=== PATIENT | female | born 1945 | race Caucasian/White ===

== ENCOUNTER → 2024-02-05 09:45 | Outpatient (REF) | payer MEDICARE, OTHER, SELFPAY ==
[2024-02-05 11:27] LABS: ALT (SGPT) 23 U/L (0-35); AST (SGOT) 40 U/L (14-36); Albumin 4.3 g/dl (3.5-5.0); Alkaline Phosphatase 84 U/L (38-126); Blood Urea Nitrogen 19 mg/dl (7-17); Calcium 10.6 mg/dl (8.4-10.2); Carbon Dioxide 29 mmol/L (22-30); Chloride 102 mmol/L (98-107); Glucose 91 mg/dl (70-99); HDL Cholesterol 106 mg/dl; LDL Cholesterol, Calculated 111 mg/dl; Potassium 4.5 mmol/L (3.5-5.1); Sodium 137 mmol/L (135-145); Total Bilirubin 0.7 mg/dl (0.2-1.3); Total Cholesterol 232 mg/dl (50-199); Triglyceride 76 mg/dl (10-149); Very Low Density Lipoprotein 15 mg/dl (0-30); eGFR > 60.00
== END ==
LOC: REG 09:45
PROVIDERS: ATTENDING PHYSICIAN Family Medicine; REFERRING PHYSICIAN Internal Medicine Cardiovascular Disease
DX: I10 Essential (primary) hypertension (principal); E78.00 Pure hypercholesterolemia, unspecified
CPT/HCPCS: 36415; 80053; 80061

== ENCOUNTER 2024-09-23 20:51 | Emergency (ER) | payer MEDICARE, OTHER, SELFPAY ==
[2024-09-23 20:57] VITALS: BMI 15.5
[2024-09-23 20:58] VITALS: BP 113/64
[2024-09-23 21:00] VITALS: BP 106/59
[2024-09-23 21:08] LABS: % Basophils 0.3 % (0-2); % Eosinophils 1.3 % (0-6); % Immature Granulocytes 0.2 % (0-0.5); % Lymphocytes 2.9 % (20.5-51.1); % Monocytes 8.2 % (1.7-9.3); % Neutrophils 87.1 % (42.2-75.2); Absolute Eosinophils 0.1 10^3/uL (0-0.7); Absolute Lymphocytes 0.3 10^3/uL (1.2-3.4); Absolute Monocytes 0.7 10^3/uL (0.1-0.6); Absolute Neutrophils 7.8 10^3/uL (1.4-6.5); Hematocrit 42.5 % (37.0-47.0); Mean Corp Hgb Conc. 32.9 g/dL (33.0-37.0); Mean Corpuscular Hgb 31.3 pg (27.0-31.0); Mean Corpuscular Volume 95.1 fL (81.0-99.0); Nucleated Red Blood Cells % 0 %; Platelet Count 336 10^3/uL (130-400); Red Blood Cell Count 4.47 10^6/uL (4.20-5.40); Red Cell Dist. Width 12.5 % (11.5-14.5); White Blood Cell Count 8.9 10^3/uL (4.8-10.8)
[2024-09-23] MEDS: NSS 500 IV ×2 (21:08→22:56)
[2024-09-23 21:24] LABS: ALT (SGPT) 24 U/L (0-35); AST (SGOT) 39 U/L (14-36); Albumin 4.3 g/dl (3.5-5.0); Alkaline Phosphatase 74 U/L (38-126); Blood Urea Nitrogen 29 mg/dl (7-17); Calcium 9.2 mg/dl (8.4-10.2); Carbon Dioxide 25 mmol/L (22-30); Chloride 99 mmol/L (98-107); Estimated Creatinine Clearance 28 ml/min; Glucose 151 mg/dl (70-99); Sodium 138 mmol/L (135-145); Total Bilirubin 0.5 mg/dl (0.2-1.3); eGFR 51.43
[2024-09-23 22:00] VITALS: BP 94/51
[2024-09-23 22:58] VITALS: BP 115/59
[2024-09-23 23:00] VITALS: BP 118/72
--- NOTE | 2024-09-23 23:35 | ED.GENMED ---
History of Present Illness
General
Chief Complaint: Abdominal Symptoms
Source: patient and spouse
Exam Limitations: dementia
Time Seen by Provider: 09/23/24 20:52
History of Present Illness
History of Present Illness:
This is 79-year-old female with a history of dementia who presents with persistent nausea, vomiting and diarrhea. states started last night and is just persistent she was unable to eat or drink much at all. He was concerned about her being
dehydrated. The patient initially arrived prior to family. She reported no complaints except for dry mouth. She specifically denied abdominal pain or persistent nausea. She also denied fevers. It is noted that she does have dementia. Patient's
son states that he was worried because she seems dehydrated. The patient's spouse states that there is norovirus going around the facility.
Past History
Past History
ED Past Medical History: HTN, Hypercholesterolemia, Psychiatric (anxiety. Multiple similar episodes of syncope, first time was 12/12, second time was 01/04, both with nausea preceding, did not have medical evaluation for these 2. Had a third episode on
02/11 and was evaluated here. 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
Social History
Personal:
Living: with family
Employment: Retired
Phy Exam
Physical Exam
Physical Exam:
CONSTITUTIONAL Patient alert and oriented to person. Dry mucous membranes. Vital signs reviewed.
HEAD atraumatic, normocephalic.
EYES eyelids normal to inspection, Extraocular muscles intact, Conjunctiva normal, Sclera normal.
NECK normal range of motion, Trachea midline, no jugular venous distention.
RESPIRATORY CHEST No respiratory distress noted, Chest expansion equal
ABDOMEN abdomen nontender, Bowel sounds normal. No distention.
BACK normal inspection, no obvious deformities
UPPER EXTREMITY range of motion normal, Motor strength normal, no cyanosis, no edema.
LOWER EXTREMITY range of motion normal, Motor strength normal, no cyanosis, no edema.
NEURO Speech normal, No focal motor deficits,Cranial Nerves intact to screening exam.
SKIN skin warm, dry, and normal in color.
Course
Orders/Labs/Results
Orders:
Orders
09/23/24 21:00
Complete Blood Count/With Diff Urgent
Comprehensive Metabolic Panel Urgent
09/23/24 21:03
0.9% Sodium Chloride 500 ml [Nss] 500 ml IV BOLUS
09/23/24 22:31
0.9% Sodium Chloride 500 ml [Nss] 500 ml IV BOLUS
Abnormal Lab Results
09/23/24
21:00
MCH 31.3 H pg
(27.0-31.0)
MCHC 32.9 L g/dL
(33.0-37.0)
Absolute Neuts (auto) 7.8 H 10^3/uL
(1.4-6.5)
Absolute Lymphs (auto) 0.3 L 10^3/uL
(1.2-3.4)
Absolute Monos (auto) 0.7 H 10^3/uL
(0.1-0.6)
Neutrophils % 87.1 H %
(42.2-75.2)
Lymphocytes % 2.9 L %
(20.5-51.1)
BUN 29 H mg/dl
(7-17)
Creatinine 1.1 H mg/dL
(0.6-1.0)
Glucose 151 H mg/dl
(70-99)
AST 39 H U/L
(14-36)
09/23/24 21:00
09/23/24 21:00
Vital Signs
Initial and Last Documented VS:
Initial Vital Signs
Temp
98.8 F
09/23/24 20:54
Last Documented Vital Signs
Temp Pulse Resp BP Pulse Ox
98.8 F 100 27 118/72 97
09/23/24 20:54 09/23/24 23:00 09/23/24 23:00 09/23/24 23:00 09/23/24 23:00
MDM/Problems Addressed
Differential Diagnosis Includes:
Electrolyte imbalance, gastroenteritis, norovirus
MDM/Problems Addressed:
Dehydration, vomiting, diarrhea, gastroenteritis
*Pulse Oximetry
Patient hypoxic: no
*Critical Care Note
Total Time (30-74mins, 75-104mins- exclusive of procedures): Not Applicable
Data Reviewed
Review of Other/Old Records Reveals: Labs (Prior labs from February 2024 reviewed showing creatinine 0.9)
Source: patient and family
Further Testing Considered But Not Given:
Consider CT of the abdomen but patient offers no complaints of pain in her abdomen soft nontender.
Patient Management
Escalation/DeEscalation of care consider admission/obs:
Considered admission. However, patient has had no further vomiting. She was given 1 L of IV fluids and is now tolerating ice chips. She is happy and smiling. Case discussed with family and shared decision making concluded that she was stable to
go home for outpatient management. Counseled on reasons for return and spouse and family agree
ED Attending Note
-
Portions of this chart may have been created with voice recognition software.� Occasional wrong word or��sound alike� substitutions may have occurred due to the inherent limitations of voice recognition software.
Discharge Plan
Departure
Patient Disposition: Home (Routine Discharge)
Date of Disposition: 09/23/24
Time of Disposition: 23:35
Patient with high blood pressure during this ER visit?: No
Discharge Problem:
Vomiting, Acute diarrhea
Instructions: Clear Liquid Diet, Dehydration, Adult (DC), Nausea and Vomiting, Adult (DC)
Prescriptions:
New
ondansetron 4 mg tablet,disintegrating
4 mg PO Q6H PRN (Reason: nausea and vomiting) Qty: 20 0RF
No Action
polyethylene glycol 3350 17 GRAMS powder in packet
17 grams PO BID
atorvastatin 10 MG tablet
10 mg PO DAILY
lisinopril 5 MG tablet
5 mg PO DAILY
metoprolol succinate 25 MG tablet extended release 24 hr
25 mg PO DAILY
Escitalopram Oxalate
10 mg PO DAILY
Referrals:
UNKNOWN - PT NOT,INTERVIEWE [Family Provider] -
Activity Restrictions/Additional Instructions:
Continue to ensure proper hydration and advance diet slowly as discussed. Trial clear liquids tomorrow if she feels well enough. If she tolerates clear liquids for 2 meals you may progress to a more bland diet such as bananas, toast or rice.
Please see your doctor in follow-up in the next 48 hours. Return today for intractable vomiting, abdominal pain, changes in mental status or any other concerns
Interventions
Interventions:
*Risk Screen - Suicide Last Done: 09/23/24 20:54
*General Assessment Last Done: 09/23/24 20:54
*Neglect/Abuse Screening Last Done: 09/23/24 20:54
*ED COVID-19 Vaccine History Last Done: 09/23/24 20:54
*Nursing Disposition Last Done: 09/24/24 00:03
UL-Ehcdyd-Bczmqkvcea Assessment Last Done: 09/23/24 20:54
Discharge Date and Time
Discharge Date/Time: 09/24/24 00:04
Print Language: BAHAMIAN
== END 2024-09-24 00:04 | disposition home or self-care (01) ==
LOC: EMR 20:51
PROVIDERS: EMERGENCY PHYSICIAN Emergency Medicine
DX: E86.0 Dehydration (principal); R11.2 Nausea with vomiting, unspecified; R19.7 Diarrhea, unspecified; I10 Essential (primary) hypertension; E78.00 Pure hypercholesterolemia, unspecified; F03.90 Unspecified dementia, unspecified severity, without behavioral disturbance, psychotic disturbance, mood disturbance, and anxiety
CPT/HCPCS: 96360; 99284; 80053; 85025

== ENCOUNTER 2025-07-05 07:31 | Inpatient (IN) | payer MEDICARE, OTHER, SELFPAY ==
[2025-07-03 12:05] VITALS: BP 124/83
--- NOTE | 2025-07-03 12:24 | ED.GENMED ---
History of Present Illness
<Stacy Melchor PA-C - Last Filed: 07/03/25 18:49>
General
Chief Complaint: Skin Problem
Source: family and ambulance crew
Exam Limitations: dementia
Time Seen by Provider: 07/03/25 12:10
History of Present Illness
History of Present Illness:
80yoF with a history of dementia, hypertension, hyperlipidemia presenting via EMS for evaluation of left ankle and foot redness. Patient is a resident at [facility]. Patient is unable to provide any history due to underlying
dementia. EMS was called today for left foot redness and swelling. There was no reported trauma. Son states that patient was unable to ambulate today due to the pain which is unusual for her. Mental status is at baseline.
Past History
<Stacy Melchor PA-C - Last Filed: 07/03/25 18:49>
Past History
ED Past Medical History: HTN, Hypercholesterolemia, Psychiatric (anxiety. Multiple similar episodes of syncope, first time was 12/12, second time was 01/04, both with nausea preceding, did not have medical evaluation for these 2. Had a third episode on
02/11 and was evaluated here. 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
Social History
Personal:
Living: with family
Employment: Retired
Phy Exam
<Stacy Melchor PA-C - Last Filed: 07/03/25 18:49>
General Physical Exam
General Presentation: well appearing and no apparent distress
General Skin: warm and dry
General Habitus: normal and elderly
General Mental: alert
ENT Exam
ENT Exam: normocephalic
Cardiovascular Exam
Cardiovascular Exam: normal peripheral pulses (2+ DP and PT pulses bilaterally)
Pulmonary Exam
Pulmonary Exam: no respiratory distress
Neurological Exam
Neurological Exam: alert
Chris Coma Scale
Eye Opening: Spontaneous
Verbal Response: Oriented
Motor Response: Obeys Commands
GCS Total Score: 15
Musculoskeletal Exam
Musculoskeletal Exam: other (Diffuse edema noted to L ankle and foot region with associated erythema and warmth. No visualized wounds.)
Skin Exam
Skin Exam: warm/dry
Psychiatric Exam
Psychiatric Exam: normal mood/affect
Course
<Stacy Melchor PA-C - Last Filed: 07/03/25 18:49>
Orders/Labs/Results
Orders:
Orders
07/03/25 Breakfast
Cholesterol Lowering
At Your Request: Limited Participation
Cholesterol Lowering: Sodium, 2 Gram
07/03/25 12:22
CR Ankle - Left Min 3 Views Urgent
Comment:
Reason For Exam: pain, swelling
CR Foot - Left Min 3 Views Urgent
Comment:
Reason For Exam: pain, swelling
Venous Doppler Lwr Ext Left [US Periph Venous LOWER Ext LT] Urgent
Comment:
Reason For Exam: L lower leg swelling
07/03/25 12:31
Complete Blood Count/With Diff Urgent
Comprehensive Metabolic Panel Urgent
07/03/25 15:55
CeFAZolin 2 GRAM [Ancef] 2 grams in 10 ml IV NOW
07/03/25 16:00
Acetaminophen [Tylenol] 1,000 mg PO NOW STA
07/03/25 16:36
Pelvis, 1 or 2 Views CR [CR Pelvis - 1 Or 2 Views ] Urgent
Comment:
Reason For Exam: pain
07/03/25 17:02
Admit/Transfer Patient As Directed
Co-Sign Provider:
Level of Care: Observation services
Assign to:: Medical/Surgical
Physician / Group: [email or web address]
Diagnosis: Cellulitis LLEx
07/03/25 17:05
Code Status As Directed
Resuscitation Status: Full Code
07/03/25 18:16
Acetaminophen [Tylenol] 650 mg PO Q4HPRN PRN
Bisacodyl [Dulcolax] 10 mg RECTAL [id number] PRN
CeFAZolin 1 GRAM [Ancef] 1 gram in 5 ml IV Q8H
Docusate W/Senna [Senokot-S] 1 tablet PO BIDPRN PRN
Enoxaparin Sodium [Lovenox] 40 mg SC QPM
Polyethylene Glycol Powder [Miralax] 17 grams PO DAILYPRN PRN
07/03/25 18:16
Activity As Directed
Activity Level: With Assistance
Vital Signs As Directed
Frequency: Per unit guidelines
DX Deep Vein Thrombosis Video Routine
07/03/25 20:00
Polyethylene Glycol Powder [Miralax] 17 grams PO BID
07/04/25 06:00
Complete Blood Count/No Diff IN AM
07/04/25 08:00
Atorvastatin [Lipitor] 10 mg PO DAILY
Escitalopram Oxalate 10 mg PO DAILY
Lisinopril [Zestril] 5 mg PO DAILY
Metoprolol Xl [Toprol Xl] 25 mg PO DAILY
Abnormal Lab Results
07/03/25
12:31
WBC 15.2 H 10^3/uL
(4.8-10.8)
RBC 3.98 L 10^6/uL
(4.20-5.40)
Hgb 11.9 L g/dL
(12.0-16.0)
Hct 36.3 L %
(37.0-47.0)
MCHC 32.8 L g/dL
(33.0-37.0)
Abs Immat Gran (auto) 0.1 H 10^3/uL
(0-0.05)
Absolute Neuts (auto) 12.6 H 10^3/uL
(1.4-6.5)
Absolute Lymphs (auto) 1.0 L 10^3/uL
(1.2-3.4)
Absolute Monos (auto) 1.5 H 10^3/uL
(0.1-0.6)
Immature Gran % 0.6 H %
(0-0.5)
Neutrophils % 82.4 H %
(42.2-75.2)
Lymphocytes % 6.7 L %
(20.5-51.1)
Monocytes % 10.0 H %
(1.7-9.3)
AST 37 H U/L
(14-36)
07/03/25 12:31
07/03/25 12:31
Vital Signs
Initial and Last Documented VS:
Initial Vital Signs
Temp Pulse Resp BP Pulse Ox
98.6 F 75 17 124/83 97
07/03/25 12:05 07/03/25 12:05 07/03/25 12:05 07/03/25 12:05 07/03/25 12:05
Last Documented Vital Signs
Temp Pulse Resp BP Pulse Ox
98.4 F 65 18 117/60 93
07/03/25 18:20 07/03/25 18:20 07/03/25 18:20 07/03/25 18:20 07/03/25 18:20
Svetlanalt;Ye Alicea, - Last Filed: 07/03/25 16:53>
Orders/Labs/Results
Orders:
Orders
07/03/25 Breakfast
Cholesterol Lowering
At Your Request: Limited Participation
Cholesterol Lowering: Sodium, 2 Gram
07/03/25 12:22
CR Ankle - Left Min 3 Views Urgent
Comment:
Reason For Exam: pain, swelling
CR Foot - Left Min 3 Views Urgent
Comment:
Reason For Exam: pain, swelling
Venous Doppler Lwr Ext Left [US Periph Venous LOWER Ext LT] Urgent
Comment:
Reason For Exam: L lower leg swelling
07/03/25 12:31
Complete Blood Count/With Diff Urgent
Comprehensive Metabolic Panel Urgent
07/03/25 15:55
CeFAZolin 2 GRAM [Ancef] 2 grams in 10 ml IV NOW
07/03/25 16:00
Acetaminophen [Tylenol] 1,000 mg PO NOW STA
07/03/25 16:36
Pelvis, 1 or 2 Views CR [CR Pelvis - 1 Or 2 Views ] Urgent
Comment:
Reason For Exam: pain
07/03/25 17:02
Admit/Transfer Patient As Directed
Co-Sign Provider:
Level of Care: Observation services
Assign to:: Medical/Surgical
Physician / Group: [email or web address]
Diagnosis: Cellulitis LLEx
07/03/25 17:05
Code Status As Directed
Resuscitation Status: Full Code
07/03/25 18:16
Acetaminophen [Tylenol] 650 mg PO Q4HPRN PRN
Bisacodyl [Dulcolax] 10 mg RECTAL Q16WFRH PRN
CeFAZolin 1 GRAM [Ancef] 1 gram in 5 ml IV Q8H
Docusate W/Senna [Senokot-S] 1 tablet PO BIDPRN PRN
Enoxaparin Sodium [Lovenox] 40 mg SC QPM
Polyethylene Glycol Powder [Miralax] 17 grams PO DAILYPRN PRN
07/03/25 18:16
Activity As Directed
Activity Level: With Assistance
Vital Signs As Directed
Frequency: Per unit guidelines
DX Deep Vein Thrombosis Video Routine
07/03/25 20:00
Polyethylene Glycol Powder [Miralax] 17 grams PO BID
07/04/25 06:00
Complete Blood Count/No Diff IN AM
07/04/25 08:00
Atorvastatin [Lipitor] 10 mg PO DAILY
Escitalopram Oxalate 10 mg PO DAILY
Lisinopril [Zestril] 5 mg PO DAILY
Metoprolol Xl [Toprol Xl] 25 mg PO DAILY
Abnormal Lab Results
07/03/25
12:31
WBC 15.2 H 10^3/uL
(4.8-10.8)
RBC 3.98 L 10^6/uL
(4.20-5.40)
Hgb 11.9 L g/dL
(12.0-16.0)
Hct 36.3 L %
(37.0-47.0)
MCHC 32.8 L g/dL
(33.0-37.0)
Abs Immat Gran (auto) 0.1 H 10^3/uL
(0-0.05)
Absolute Neuts (auto) 12.6 H 10^3/uL
(1.4-6.5)
Absolute Lymphs (auto) 1.0 L 10^3/uL
(1.2-3.4)
Absolute Monos (auto) 1.5 H 10^3/uL
(0.1-0.6)
Immature Gran % 0.6 H %
(0-0.5)
Neutrophils % 82.4 H %
(42.2-75.2)
Lymphocytes % 6.7 L %
(20.5-51.1)
Monocytes % 10.0 H %
(1.7-9.3)
AST 37 H U/L
(14-36)
07/03/25 12:31
07/03/25 12:31
Vital Signs
Initial and Last Documented VS:
Initial Vital Signs
Temp Pulse Resp BP Pulse Ox
98.6 F 75 17 124/83 97
07/03/25 12:05 07/03/25 12:05 07/03/25 12:05 07/03/25 12:05 07/03/25 12:05
Last Documented Vital Signs
Temp Pulse Resp BP Pulse Ox
98.4 F 65 18 117/60 93
07/03/25 18:20 07/03/25 18:20 07/03/25 18:20 07/03/25 18:20 07/03/25 18:20
<Stacy Melchor PA-C - Last Filed: 07/03/25 18:49>
MDM/Problems Addressed
Differential Diagnosis Includes:
80yoF here with atraumatic L foot/ankle redness and swelling. Hx of dementia and further history is limited. VSS. She is well appearing in no distress. Erythema and warmth noted on exam. LLE is neurovascularly intact. Differential diagnosis includes
but is not limited to: DVT, cellulitis, venous stasis, fracture, gout
Initial ED plan: Check CBC, CMP, venous duplex, and L foot/ankle x-rays.
<Stacy Melchor PA-C - Last Filed: 07/03/25 18:49>
*Pulse Oximetry
SaO2: 97
Oxygen Mode of Delivery: Room air
Patient hypoxic: no
*Critical Care Note
Total Time (30-74mins, 75-104mins- exclusive of procedures): Not Applicable
<Stacy Melchor PA-C - Last Filed: 07/03/25 18:49>
Update Note
Update Note:
Venous duplex is negative for DVT. X-rays do not show any fractures. Labs reveal a leukocytosis with a WBC of 15. Suspect cellulitis. After discussion with son, initially attempted to discharge patient to trial course of PO antibiotics. Patient was
unable to ambulate and required an assist of 2 to get off the stretcher. Patient reporting R thigh pain on reassessment and pelvic x-rays ordered. At this point, will admit given inability to ambulate. IV Ancef given.
ED Attending Note
<Stacy Melchor PA-C - Last Filed: 07/03/25 18:49>
-
Portions of this chart may have been created with voice recognition software.� Occasional wrong word or��sound alike� substitutions may have occurred due to the inherent limitations of voice recognition software.
<Ye Alicea DO - Last Filed: 07/03/25 16:53>
ED Attending Note
Patient seen and examined by attending physician: Yes
I performed the substantive portion of visit, reviewed & personally made and approve the management plan that is documented in note by myself or ТАТЬЯНА.: Yes
ED Attending Note:
I have reviewed Danielle's note
Patient presents from the [facility] for evaluation of left foot redness and swelling. No known fever. Patient has otherwise been at her baseline. She has been unable to weight-bear. When attempting to weight-bear here with her son the
patient had pain in the right groin.
General: Sleeping but readily arousable, confused but at her baseline per son
Vitals: unremarkable
Head: Atraumatic
Eyes: Pupils equal, EOMI
Neck: Trachea midline
Lungs: Clear and equal b/l
Heart: Regular rate, no murmurs
Abd: Soft, Nontender, No pulsatile mass
Neuro: No focal weakness
Back: Tenderness to palpation and ecchymosis noted right buttock over the ischial tuberosity and ilium
Skin: Warm, dry, no rash mild to moderate erythema left lower leg and foot. No significant discomfort with range of motion of the ankle bilaterally, knee bilaterally or hip bilaterally. No edema
Antibiotics for possible cellulitis. Will obtain further imaging of the pelvis. Patient unable to weight-bear she will be suitable for discharge.
Discharge Plan
Departure
Patient Disposition: Admit
Date of Disposition: 07/03/25
Time of Disposition: 16:40
Presentation/result/management discussed w/ accepting MD/DO: Hospitalist
Discharge Problem:
Cellulitis of left lower extremity
Interventions
Interventions:
*Risk Screen - Suicide Last Done: 07/03/25 12:06
*General Assessment Last Done: 07/03/25 12:06
*Neglect/Abuse Screening Last Done: 07/03/25 12:06
*ED- Fall Risk Assessment Last Done: 07/03/25 12:24
*ED COVID-19 Vaccine History Last Done: 07/03/25 12:06
*Nursing Disposition Last Done: 07/03/25 18:28
ED-Skin Assessment Last Done: 07/03/25 12:33
Discharge Date and Time
Discharge Date/Time: 07/03/25 18:28
[2025-07-03 12:38] LABS: Hematocrit 36.3 % (37.0-47.0); Hemoglobin 11.9 g/dL (12.0-16.0); Mean Corp Hgb Conc. 32.8 g/dL (33.0-37.0); Mean Corpuscular Volume 91.2 fL (81.0-99.0); Nucleated Red Blood Cells % 0 %; Platelet Count 256 10^3/uL (130-400); Red Cell Dist. Width 13.2 % (11.5-14.5)
[2025-07-03 12:58] LABS: ALT (SGPT) 22 U/L (0-35); AST (SGOT) 37 U/L (14-36); Albumin 3.8 g/dl (3.5-5.0); Alkaline Phosphatase 103 U/L (38-126); Blood Urea Nitrogen 16 mg/dl (7-17); Calcium 8.9 mg/dl (8.4-10.2); Carbon Dioxide 30 mmol/L (22-30); Chloride 103 mmol/L (98-107); Glucose 96 mg/dl (70-99); Potassium 4.0 mmol/L (3.5-5.1); Sodium 137 mmol/L (135-145); Total Protein 6.8 g/dl (6.3-8.2); eGFR > 60.00
[2025-07-03 13:00] VITALS: BP 146/75
[2025-07-03 14:00] VITALS: BP 126/65
[2025-07-03 15:29] VITALS: BP 133/72
[2025-07-03] MEDS: ANCEF 10 IV (16:00)
[2025-07-03] MEDS: TYLENOL 1000 MG PO (16:09)
--- NOTE | 2025-07-03 16:53 | HPS.HSE ---
Family Physician
-
Family Physician: Clayton Paulino
Chief Complaint
-
L ankle redness and swelling
History of Present Illness
HPI
80F with dementia NH Res HX, HTN, HLD seen at ER:
- pw atraumatic L ankle redness and swelling.
- afebrile and VSS normal
- WCC 15.
- Unreamrkable XR
- Unremarkable US for DVT
- she is unable to ambulate or bear any weight and son does not feel comfortable with her going home.
Medical History
Past Medical History
Past Medical History: Reports Dementia, HTN and Hypercholesterolemia
Past Surgical History: Reports Other
Social History
Unable to obtain full social history at this time due to: Dementia
Family History
Family History: Not pertinent
Allergies / Home Medications
Allergies reflects when Allergies were last updated in [facility].
Home Medications with original date entered in [facility]
Allergy/Medication List:
Allergies
Allergy/AdvReac Type Severity Reaction Status Date / Time
atenolol Allergy Unknown Verified 07/03/25 12:06
hydrochlorothiazide Allergy Unknown Verified 07/03/25 12:06
Home Medications
Escitalopram Oxalate 10 mg PO DAILY 07/07/19
atorvastatin 10 mg tablet 10 mg PO DAILY 07/07/19
lisinopril 5 mg tablet 5 mg PO DAILY 07/07/19
metoprolol succinate 25 mg tablet,extended release 24 hr 25 mg PO DAILY 07/07/19
polyethylene glycol 3350 17 gram oral powder packet 17 grams PO BID 07/07/19
ondansetron 4 mg disintegrating tablet 4 mg PO Q6H PRN nausea and vomiting #20 tabs 09/23/24
cephalexin 500 mg capsule 500 mg PO Q6H 7 days #28 caps 07/03/25
Review of Systems
-
Unable to obtain full review of systems at this time due to: Dementia
Physical Exam
Vital Signs
Vital Signs
Temp Pulse Resp BP Pulse Ox
98.6 F 78 12 133/72 95
07/03/25 12:05 07/03/25 15:30 07/03/25 15:30 07/03/25 15:29 07/03/25 15:30
Physical Exam
General: Well Developed, Well Nourished and No Apparent Distress
HEENT: NormoCephalic, Moist mucous membranes and Atraumatic
Respiratory: Clear
Cardiac: S1/S2 and Regular Rhythm; No Murmur or Rub
GI: Soft, Non Tender, Non Distended and Normal Bowel Sounds; No Organomegaly
Rectal: Deferred by Provider
Musculoskeletal: No Clubbing, No Cyanosis and No Edema
Skin: Rash ( L ankle redness and swelling.)
Neuro: Nonfocal/grossly intact
Laboratory Results
-
07/03/25 12:31
07/03/25 12:31
Laboratory Results
Total Bilirubin 1.1 mg/dl (0.2-1.3) 07/03/25 12:31
AST 37 U/L (14-36) H 07/03/25 12:31
ALT 22 U/L (0-35) 07/03/25 12:31
Alkaline Phosphatase 103 U/L (38-126) 07/03/25 12:31
Data Reviewed
-
Diagnostic Radiology: Report Reviewed by me
Lab Data: Labs Reviewed by me
Impression/Plan
-
Vital Signs
Temp Pulse Resp BP Pulse Ox
98.6 F 78 12 133/72 95
07/03/25 12:05 07/03/25 15:30 07/03/25 15:30 07/03/25 15:29 07/03/25 15:30
Laboratory Tests
06/13/16 07/03/25
07:17 12:31
WBC 15.2 H
Hgb 11.9 L
BUN 16
eGFR > 60.00
AST 37 H
Urine WBC 0-2
Ur Squamous Epith Cells >30
Urine Bacteria Many H
LLEX US
No sonographic evidence for left lower extremity deep venous thrombosis.
Lt Foot XR
- No acute fracture or dislocation.
- Minor joint space narrowing of the first metatarsophalangeal joint with tiny marginal osteophytes. The joint spaces are otherwise maintained.
- Soft tissue swelling about the foot and ankle, nonspecific.
ASSESSMENT & PLAN
Pending Rx reconciliation
Lt distal Laura cellulitis
Associated acute gait dysfunction
Leucocytosis
- Not septic
- NEG Sono for DVT. NEG XR Fx
- Failed OP Cephalexin
- Agree with IV Cefazolin
- Trend WCC
- PT/OT
Ecchymoses over Rt gluteal region
No tenderness on Pelvic compression
Non tender on rolling Laura
- Pending XR Pelvis
Pre existing condition
HX dementia- NH Resident
Essential HTN - stable on Lisinopril, Metoprolol succinate
HLD - control, on Atorvastatin
DVT Px: LMWH
DNR per son who is palliative PA at [facility]
Obs MS
[2025-07-03 18:20] VITALS: BP 117/60
[2025-07-03 18:25] VITALS: BMI 17.9
[2025-07-03] MEDS: MIRALAX 17 GRAMS PO (19:56)
[2025-07-03] MEDS: LOVENOX 40 MG SC (19:56)
[2025-07-03 23:00] VITALS: BP 115/52
[2025-07-03] MEDS: ANCEF 5 IV (23:57)
[2025-07-04 07:00] VITALS: BP 156/75
[2025-07-04 07:40] LABS: Hematocrit 36.6 % (37.0-47.0); Hemoglobin 12.2 g/dL (12.0-16.0); Mean Corp Hgb Conc. 33.3 g/dL (33.0-37.0); Mean Corpuscular Volume 92.0 fL (81.0-99.0); Platelet Count 247 10^3/uL (130-400); Red Cell Dist. Width 13.0 % (11.5-14.5)
[2025-07-04] MEDS: MIRALAX 17 GRAMS PO ×2 (07:43→19:54)
[2025-07-04] MEDS: TYLENOL 650 MG PO ×3 (07:44→19:53)
[2025-07-04] MEDS: TOPROL XL 25 MG PO (07:44)
[2025-07-04] MEDS: ANCEF 5 IV ×2 (07:44→15:29)
[2025-07-04] MEDS: ZESTRIL 5 MG PO (07:44)
[2025-07-04] MEDS: LIPITOR 10 MG PO (07:44)
[2025-07-04] MEDS: LEXAPRO 10 MG PO (07:44)
--- NOTE | 2025-07-04 08:31 | CON.ORTHO ---
Consultation
-
Date/Time Consultation Requested: Jun 30/0647
Date/Time Consultation Performed: Jun 30/0745
Requesting Provider: Gio
Performing Provider: Hugo for [facility]
Reason for Consultation: Right sided hemipelvis fractures
Consultation - Orthopedics
History
History of Present Illness:
80 y/o female with a PMH of dementia, hypertension, hyperlipidemia presenting via EMS for evaluation of left ankle and foot redness. Patient is a resident at [facility]. Patient is unable to provide any history due to underlying
dementia. EMS was called today for left foot redness and swelling. There was no reported trauma. Son states that patient was unable to ambulate today due to the pain which is unusual for her. Mental status is reported baseline. It appears as
though she was started on IV ABX for her left ankle pain and redness. Xrays negative and US LLE negative for DVT. However, although no reported trauma, x-rays of the pelvis were obtained which revealed acute appearing right sided hemipelvis
fractures, therefore we were requested in consultation by Dr. Powers.
Past Medical History:
Dementia
HTN
Hypercholesterolemia
Surgical History:
Non available
Social History:
Personal:
Living: with family ([facility])
Employment: Retired
Family History:
Noncontributory
ROS:
12 point negative except for those mentioned in the HPI
Allergies / Home Medications
Allergy/AdvReac Type Severity Reaction Status Date / Time
atenolol Allergy Unknown Verified 07/03/25 12:06
hydrochlorothiazide Allergy Unknown Verified 07/03/25 12:06
�Medication �Instructions �Recorded
Escitalopram Oxalate 10 mg PO DAILY Mental 07/07/19
Health/Anxiety
atorvastatin 10 mg tablet 10 mg PO DAILY High Cholesterol 07/07/19
lisinopril 5 mg tablet 5 mg PO DAILY Blood Pressure 07/07/19
metoprolol succinate 25 mg 25 mg PO DAILY Blood Pressure 07/07/19
tablet,extended release 24 hr
polyethylene glycol 3350 17 gram 17 grams PO BID Constipation 07/07/19
oral powder packet
ondansetron 4 mg disintegrating 4 mg PO Q6H PRN nausea and 09/23/24
tablet vomiting #20 tabs
cephalexin 500 mg capsule 500 mg PO Q6H 7 days #28 caps 07/03/25
Vital Signs / Lab Results
Temp Pulse Resp BP Pulse Ox
98.1 F 72 12 156/75 94
07/04/25 07:00 07/04/25 07:44 07/04/25 07:00 07/04/25 07:44 07/04/25 07:00
07/04/25 07:10
07/03/25 12:31
Assessment / Plan
PE: Currently at bedrest. Very poor historian given dementia. skin is intact about the pelvis. + Pelvic compression for right sided pain. - logrolls B/L LEs. Both knees are nontender. Calves are soft and nontender. Minimal erythema of the
anterior ankle, but absolutely no pain with passive ranging of the ankle and subtalar joints. DNVI B/L LEs
Xrays: RIGHT superior and inferior pubic rami fractures, with displacement. mild bilateral hip OA
Impression: JEANIE with left ankle pain/swelling
Plan: I did discuss with the patient, but I am not sure that it yielded much understanding. I spoke to Dr. Powers, who was going to place a call to her son and POA. Fortunately her pelvis fractures may be managed nonoperatively. She may be WBAT
B/L LEs on a walker, as pain permits. Recommend PT/OT during admission. Pain control. when medically optimized may be discharged back to her memory care unit with outpatient orthopedic follow-up in 4 weeks. At this time orthopedics will sign off,
however please reengage with any pertinent questions as necessary. Continue IV ABX and observation for her left ankle. if symptoms persist or regress podiatric consult could be considered.
This patient was seen in tandem with Dr. Don Martinez
[2025-07-04 09:45] VITALS: BMI 17.9
--- NOTE | 2025-07-04 09:54 | W.PN.HOSP.TC ---
Addendum entered and electronically signed by Megan Powers MD 07/04/25 10:41:
Addendum
Will also add CT head and cervical area due to suspected fall at shelter, no gross neurological deficits, no headache or neck pain, no history of loss of consciousness or vomiting but patient has dementia and unable to provide l history
End
Original Note:
Today's Communication/Plan
-
Blood culture
CT left Ankle
Consult ID & Ortho
Assessment / Plan
Assessment / Plan
Physical Exam
General: Well Developed, Well Nourished and No Apparent Distress
HEENT: Normocephalic, Moist mucous membranes and Atraumatic
Respiratory: Clear
Cardiac: S1/S2 and Regular Rhythm; No Murmur or Rub
GI: Soft, Non Tender, Non Distended and Normal Bowel Sounds
Rectal: Deferred by Provider
Musculoskeletal: No Clubbing, No Cyanosis and No Edema
Skin: Rash ( L ankle redness and swelling/ lump anteriorly.)
Neuro: awake, disoriented to self, forgetful, followed commands.
Psych: calm, apparent dementia.
A/P:
Lt ankle swelling
Admitted as distal Laura cellulitis
Positive Leucocytosis
- Not septic or toxic looking
- NEG Sono for DVT. NEG XR Fx
- Failed OP Cephalexin
-c/w IV Cefazolin
Order blood culture
Appreciate ortho & ID help
# Acute fractures of the right superior and inferior pubic rami with displacement POA causing change in gait with gait dysfunction
d/w ortho, will need WBAT with a walker
I updated her son Oliverio
Likely related to a fall, pt has memory impairment, unable to provide history
Pre existing condition
HX dementia- [place] Resident
Essential HTN - stable on Lisinopril, Metoprolol succinate
HLD - control, on Atorvastatin
Total time spent to see the patient, examine the patient, review data lab result, discuss treatment plan with patient, her family, nursing staff around 55 minutes
Anticipated Discharge: > 48 hours
Subjective/Interval History
-
Date of Service: July 04, 2025
No chest pain
No sob
No fevers
Objective Data
-
Labs:
Laboratory Results
07/04/25
07:10
WBC 11.8 H
Hgb 12.2
Hct 36.6 L
Plt Count 247
Vital Signs:
Vital Signs
Temp Pulse Resp BP Pulse Ox
98.1 F 72 12 156/75 94
07/04/25 07:00 07/04/25 07:44 07/04/25 07:00 07/04/25 07:44 07/04/25 07:00
I&O
07/03/25 07/04/25 07/05/25
06:59 06:59 06:59
Intake Total 765 / 765 480 / 480
Balance 765 / 765 480 / 480
--- NOTE | 2025-07-04 11:15 | W.PN.UPDATE ---
Update Note
Progress Note Update
CT of the left foot and ankle reviewed. Discussed with Dr. Powers. Findings on CT very likely related to some kind of trauma, likely the fall that resulted in her pelvis fractures. Unfortunately, due to her dementia, not a great historian. Findings
consist of generalized edema of the subcutaneous tissues. Achilles tendinosis. Chronic avulsion injury to the medial mall. Would recommend supportive measures with ice and elevation. A boot could help get some weight off the area, but may
potentially set her up for a fall, which we definitely want to avoid. Therefore, a boot may not be the best option. Some steroids might help reduce the level of inflammation and swelling. Her exam this morning was essentially benign, therefore I
would approach very supportively
[2025-07-04 14:05] VITALS: BP 138/65; BP 80/52; PULSE 70
[2025-07-04 14:11] VITALS: BP 138/65; BP 80/52; PULSE 70
[2025-07-04 15:00] VITALS: BP 125/72
[2025-07-04] MEDS: RISPERDAL 0.25 MG PO ×2 (15:17→22:58)
--- NOTE | 2025-07-04 15:38 | CM ---
Spoke with son Richard . Pt is confused and lives at [facility] in memory care. She is assisted in all ADLs.She uses no adaptive devices. [facility] letter explained to son. Son did not sign. Virgen copy left .Will need PT OT for discharge plan.
NO VN / SNF kx
Pharmacy [facility]
PCP Dr Paulino
PLAn Will Need PT OT evals for dc planning.
[2025-07-04] MEDS: LOVENOX 40 MG SC (17:47)
[2025-07-04] MEDS: DILAUDID IV (22:57)
[2025-07-04] MEDS: SENOKOT-S 1 TABLET PO (22:58)
[2025-07-04 23:47] VITALS: BP 124/61
[2025-07-04] MEDS: DILAUDID 0.25 MG IV (23:59)
[2025-07-05] MEDS: TYLENOL 650 MG PO (02:14)
[2025-07-05 07:00] VITALS: BP 107/54
--- NOTE | 2025-07-05 08:57 | W.PN.HOSP.TC ---
Today's Communication/Plan
-
likely dc Friday
Assessment / Plan
Assessment / Plan
Physical Exam
General: Well Developed, Well Nourished and No Apparent Distress
HEENT: Normocephalic, Moist mucous membranes and Atraumatic
Respiratory: Clear
Cardiac: S1/S2 and Regular Rhythm; No Murmur or Rub
GI: Soft, Non Tender, Non Distended and Normal Bowel Sounds
Rectal: Deferred by Provider
Musculoskeletal: No Clubbing, No Cyanosis and No Edema
Skin: Rash ( L ankle redness and swelling/ lump anteriorly.)
Neuro: awake, disoriented to self, forgetful, followed commands.
Psych: calm, apparent dementia.
A/P:
Lt ankle swelling
CT showed: Significant generalized edema of the subcutaneous tissues. Severe Achilles tendinosis, chronic avulsion injury to the medial malleolus.
d/w ortho, c/w supportive measures with ice and elevation/ walker. Per ortho: A boot could help get some weight off the area, but may potentially set her up for a fall, which we definitely want to avoid. Therefore, a boot may not be the best
option. Some steroids might help reduce the level of inflammation and swelling. Her exam this morning was essentially benign, therefore I would approach very supportively.
Since we are suspecting fall at [place], did CT head and cervical area/ no acute findings.
# Doubt lower LE cellulitis
Positive Leucocytosis but could be reactive
Will do 3 days of IV Ancef, dc if blood culture also negative
- Not septic or toxic looking
- NEG Sono for DVT. NEG XR Fx
Appreciate ortho help
# Acute fractures of the right superior and inferior pubic rami with displacement POA causing change in gait with gait dysfunction
d/w ortho, will need WBAT with a walker
Likely related to a fall, pt has memory impairment, unable to provide history
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 Pain from fracture can be also a contributory factor, will do Tylenol ATC with PRN Oxycodone.
She is [place] Resident
#Essential HTN - stable on Lisinopril, Metoprolol succinate
# HLD - control, on Atorvastatin
I updated about images and Risperdal 07/05
Total time spent to see the patient, examine the patient, review data lab result, discuss treatment plan with patient, her family, nursing staff around 55 minutes
Anticipated Discharge: Within 24 hours
Subjective/Interval History
-
Date of Service: July 05, 2025
No chest pain
No sob
No fevers
Was agitated over night
Objective Data
-
Vital Signs:
Vital Signs
Temp Pulse Resp BP Pulse Ox
98.2 F 66 16 107/54 95
07/05/25 07:00 07/05/25 07:00 07/05/25 07:00 07/05/25 07:00 07/05/25 07:00
I&O
07/04/25 07/05/25 07/06/25
06:59 06:59 06:59
Intake Total 765 / 765 1465 / 1465
Balance 765 / 765 1465 / 1465
[2025-07-05] MEDS: ANCEF 5 IV ×4 (09:03→23:52)
[2025-07-05] MEDS: MIRALAX 17 GRAMS PO ×2 (09:03→20:24)
[2025-07-05] MEDS: LIPITOR 10 MG PO (09:03)
[2025-07-05] MEDS: LEXAPRO 10 MG PO (09:04)
[2025-07-05] MEDS: ROXICODONE 2.5 MG PO (09:05)
[2025-07-05] MEDS: ZESTRIL 5 MG PO (09:06)
[2025-07-05] MEDS: TOPROL XL 25 MG PO (09:06)
[2025-07-05 11:41] VITALS: BP 129/73; PULSE 75
--- NOTE | 2025-07-05 12:13 | CM ---
Addendum entered by Kelsea Dewey RN 07/05/25 13:40:
Spoke with Shahida at [facility] . Reviewed and faxed PT OT to [facility] to review and decide if [facility] can accept back or SNF.
Addendum entered by Kelsea Dewey RN 07/05/25 12:24:
Spoke with Fred reviewed above with patient . IMM reviewed explained IMM copy left in room as requested.
Original Note:
Pt confused . On 1:1 for safety.
Assisted with meals and OOB to chair.
PT OT evaluation indicates SNF.
LM with Shahida at [facility] assisted living where she lives.
PLAN Return to [facility] VS SNF
[2025-07-05 15:00] VITALS: BP 109/71
[2025-07-05] MEDS: TYLENOL 1000 MG PO ×2 (15:20→20:57)
[2025-07-05] MEDS: RISPERDAL 0.5 MG PO (16:16)
[2025-07-05] MEDS: LOVENOX 40 MG SC (17:15)
[2025-07-05] MEDS: MELATONIN 5 MG PO (20:57)
[2025-07-05 23:20] VITALS: BP 121/61
[2025-07-06 07:39] LABS: Hematocrit 31.4 % (37.0-47.0); Hemoglobin 10.5 g/dL (12.0-16.0); Mean Corp Hgb Conc. 33.4 g/dL (33.0-37.0); Mean Corpuscular Volume 91.5 fL (81.0-99.0); Platelet Count 272 10^3/uL (130-400); Red Cell Dist. Width 12.9 % (11.5-14.5)
[2025-07-06] MEDS: ANCEF 5 IV ×3 (08:09→23:02)
[2025-07-06 08:15] VITALS: BP 138/65
[2025-07-06 09:03] LABS: ALT (SGPT) < 10 U/L (0-35); AST (SGOT) 27 U/L (14-36); Albumin 3.0 g/dl (3.5-5.0); Alkaline Phosphatase 95 U/L (38-126); Blood Urea Nitrogen 14 mg/dl (7-17); Calcium 8.5 mg/dl (8.4-10.2); Carbon Dioxide 33 mmol/L (22-30); Chloride 103 mmol/L (98-107); Estimated Creatinine Clearance 53 ml/min; Glucose 103 mg/dl (70-99); Magnesium 2.1 mg/dl (1.6-2.3); Potassium 4.3 mmol/L (3.5-5.1); Sodium 138 mmol/L (135-145); Total Protein 5.7 g/dl (6.3-8.2); eGFR > 60.00
--- NOTE | 2025-07-06 09:30 | W.PN.HOSP.TC ---
Today's Communication/Plan
-
DC in AM , will need SNF, consult case management rn
Assessment / Plan
Assessment / Plan
Physical Exam
General: No Apparent Distress
HEENT: Normocephalic, dryt mucous membranes and Atraumatic
Respiratory: Clear
Cardiac: S1/S2 and Regular Rhythm; No Murmur or Rub
GI: Soft, Non Tender, Non Distended and Normal Bowel Sounds
Rectal: No bleeding
Musculoskeletal: No Clubbing, No Cyanosis and No Edema
Skin: Rash ( L ankle redness and swelling/ lump anteriorly is less.)
Neuro: awake, disoriented to self, forgetful, followed commands.
Psych: calm, apparent dementia.
A/P:
Lt ankle swelling
CT showed: Significant generalized edema of the subcutaneous tissues. Severe Achilles tendinosis, chronic avulsion injury to the medial malleolus.
d/w ortho, c/w supportive measures with ice and elevation/ walker. Per ortho: A boot could help get some weight off the area, but may potentially set her up for a fall, which we definitely want to avoid. Therefore, a boot may not be the best
option. Some steroids might help reduce the level of inflammation and swelling. Her exam this morning was essentially benign, therefore I would approach very supportively.
Since we are suspecting fall at [place], did CT head and cervical area/ no acute findings.
# Doubt lower LE cellulitis
Positive Leucocytosis but could be reactive
s/p Will do 3 days of IV Ancef, dc 07/07
- Not septic or toxic looking
- NEG Sono for DVT. NEG XR Fx
Appreciate ortho help
# Acute fractures of the right superior and inferior pubic rami with displacement POA causing change in gait with gait dysfunction
d/w ortho, will need WBAT with a walker
Likely related to a fall, pt has memory impairment, unable to provide history
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 Pain from fracture can be also a contributory factor, will do Tylenol ATC with PRN Oxycodone.
She is [place] Resident
#Essential HTN - stable on Lisinopril, Metoprolol succinate
# HLD - control, on Atorvastatin
Updated family 07/06.
Total time spent to see the patient, examine the patient, review data lab result, discuss treatment plan with patient, her family, nursing staff around 55 minutes
Anticipated Discharge: Within 24 hours
Subjective/Interval History
-
Date of Service: July 06, 2025
She woke up later
Objective Data
-
Labs:
Laboratory Results
07/06/25
07:30
WBC 8.6
Hgb 10.5 L
Hct 31.4 L
Plt Count 272
Sodium 138
Potassium 4.3
Chloride 103
Carbon Dioxide 33 H
BUN 14
Creatinine 0.7
Glucose 103 H
Calcium 8.5
Total Bilirubin 0.5
AST 27
ALT < 10
Alkaline Phosphatase 95
Vital Signs:
Vital Signs
Temp Pulse Resp BP Pulse Ox
97.7 F 59 18 138/65 98
07/06/25 08:15 07/06/25 08:15 07/06/25 08:15 07/06/25 08:15 07/06/25 08:15
I&O
07/05/25 07/06/25 07/07/25
06:59 06:59 06:59
Intake Total 1465 / 1465 860 / 860
Output Total 1000 / 1000
Balance 1465 / 1465 -140 / -140
--- NOTE | 2025-07-06 12:03 | PN.CDI ---
Addendum entered and electronically signed by Megan Powers MD 07/06/25 12:12:
Underweight
Original Note:
CDI
- -
CDI:
Physician Documentation Request
Admit Date: 07/05/25 07:31
Dear Doctor Gio,
Clinical Indicators:
Height: 5 ft 7 in
Weight: 114 lbs 6.4 oz
BMI: 17.9
07/04 note/assessment, 'underweight related to suspected inadquate energy intakes as evidenced by BMI'
If possible, please provide an associated diagnosis related to the abnormal BMI (< or = to 19), such as:
Underweight
Cachectic
BMI is not significant
Other, please specify
Use of terms such as suspected, likely, concern for, or probable (associated with a specific diagnosis that is being evaluated, monitored, or treated as if it exists) are acceptable and can be coded in the inpatient setting, when documented at the
time of discharge.
Thank you,
THOMAS Diaz RN
CDI Specialist
available via tiger text
Please use your independent medical judgment in providing your response.
[2025-07-06 12:35] VITALS: BP 154/71; PULSE 73; O2SAT 94
[2025-07-06 12:42] VITALS: BP 154/71; PULSE 73; O2SAT 94
[2025-07-06 13:14] VITALS: BP 110/77
[2025-07-06] MEDS: TYLENOL 1000 MG PO ×2 (13:19→21:01)
[2025-07-06] MEDS: LIPITOR 10 MG PO (13:19)
[2025-07-06] MEDS: LEXAPRO 10 MG PO (13:19)
[2025-07-06] MEDS: ZESTRIL 5 MG PO (13:19)
[2025-07-06] MEDS: TOPROL XL 25 MG PO (13:19)
[2025-07-06] MEDS: MIRALAX PO (13:36)
[2025-07-06 15:00] VITALS: BP 96/50
[2025-07-06] MEDS: TYLENOL PO (15:06)
--- NOTE | 2025-07-06 16:29 | CM ---
Spoke with Shahida at [facility] she had reviewed PT OT this CM had faxed to them and accepted patient back tomorrow.
[facility] requested paper scripts for meds from . TT request.
Spoke with son Richard reviewed above . He requested [facility] care see her at [facility].
Referral placed in care port.
Pt is off 1:1 over 24 hours.
Will need ambulance .
PLAn return to [facility] fax [phone] and [facility] fax [phone]
[2025-07-06] MEDS: LOVENOX 40 MG SC (18:00)
[2025-07-06] MEDS: MIRALAX 17 GRAMS PO (19:56)
[2025-07-06] MEDS: MELATONIN 5 MG PO (21:01)
[2025-07-06 23:35] VITALS: BP 98/53
[2025-07-07] MEDS: FLOMAX 0.4 MG PO ×2 (01:50→12:02)
--- NOTE | 2025-07-07 02:24 | PTCARENOTE ---
Addendum entered by Cornelia Nuñez RN 07/07/25 04:47:
pt still only able to void a small amount. attempted to void on bsc, but was unsuccessful. pt bladder scan for 661ml and straight cath fo 900ml.
Original Note:
pt bladder scan for 590. placed on bsc- unable to void. bladder distended. put wamr blankets on pt. voided a small amount. new bladder scan =404ml. s/w andreas Carey- administered Flomax. will monitor.
[2025-07-07 08:05] VITALS: BP 112/60
[2025-07-07] MEDS: ZESTRIL 5 MG PO (09:25)
[2025-07-07] MEDS: LEXAPRO 10 MG PO (09:25)
[2025-07-07] MEDS: MIRALAX 17 GRAMS PO ×2 (09:25→20:00)
[2025-07-07] MEDS: TYLENOL 1000 MG PO ×3 (09:25→21:32)
[2025-07-07] MEDS: LIPITOR 10 MG PO (09:25)
[2025-07-07] MEDS: TOPROL XL 25 MG PO (09:25)
[2025-07-07] MEDS: ANCEF 5 IV (09:26)
--- NOTE | 2025-07-07 10:01 | W.PN.HOSP.TC ---
Today's Communication/Plan
-
Await dc planning
Assessment / Plan
Assessment / Plan
Physical Exam
General: No Apparent Distress
HEENT: Normocephalic, dryt mucous membranes and Atraumatic
Respiratory: Clear
Cardiac: S1/S2 and Regular Rhythm; No Murmur or Rub
GI: Soft, Non Tender, Non Distended and Normal Bowel Sounds
Rectal: No bleeding
Musculoskeletal: No Clubbing, No Cyanosis and No Edema
Skin: Rash ( L ankle redness and swelling/ lump anteriorly is less.)
Neuro: awake, disoriented to self, forgetful, followed commands.
Psych: calm, apparent dementia.
A/P:
Lt ankle swelling
CT showed: Significant generalized edema of the subcutaneous tissues. Severe Achilles tendinosis, chronic avulsion injury to the medial malleolus.
d/w ortho, c/w supportive measures with ice and elevation/ walker. Per ortho: A boot could help get some weight off the area, but may potentially set her up for a fall, which we definitely want to avoid. Therefore, a boot may not be the best
option. Some steroids might help reduce the level of inflammation and swelling. Her exam this morning was essentially benign, therefore I would approach very supportively.
Since we are suspecting fall at [place], did CT head and cervical area/ no acute findings.
# Doubt lower LE cellulitis
Positive Leucocytosis but could be reactive
s/p Will do 3 days of IV Ancef, dc 07/07 then c/w oral Ceftin to finish the course.
- Not septic or toxic looking
- NEG Sono for DVT. NEG XR Fx
Appreciate ortho help
# Acute fractures of the right superior and inferior pubic rami with displacement POA causing change in gait with gait dysfunction
d/w ortho, will need WBAT with a walker
Likely related to a fall, pt has memory impairment, unable to provide history
# Acute urinary retention
Started on Flomax
Retention due to lack of activity following acute pelvic fracture
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 Pain from fracture can be also a contributory factor, will do Tylenol ATC with PRN Oxycodone.
She is [place] Resident
#Essential HTN - stable on Lisinopril, Metoprolol succinate
# HLD - control, on Atorvastatin
Updated family 07/06.
Total time spent to see the patient, examine the patient, review data lab result, discuss treatment plan with patient, her family ( son- Richard), nursing staff around 55 minutes
Anticipated Discharge: Within 24 hours
Subjective/Interval History
-
Date of Service: July 07, 2025
She is looking better
less agitated
not in distress
Objective Data
-
Vital Signs:
Vital Signs
Temp Pulse Resp BP Pulse Ox
98.4 F 67 18 112/60 95
07/07/25 08:05 07/07/25 08:05 07/07/25 08:05 07/07/25 08:05 07/07/25 08:05
I&O
07/06/25 07/07/25 07/08/25
06:59 06:59 06:59
Intake Total 860 / 860 680 / 680
Output Total 1000 / 1000 900 / 900
Balance -140 / -140 -220 / -220
--- NOTE | 2025-07-07 11:39 | CM ---
MD entered order for discharge.
MD indicated patient needed bladder scan /st cath prn
Spoke with Shahida Nixonrobby she had reviewed above . She said they can not provide skilled care and she will need to go to SNF [place]
Spoke with son Richard reviewed above. Pacc data He requested [facility].
Referral placed in care port.
Discharge cancelled till SNF found.
Will need ambulance .
PLAN To SNF after located
[2025-07-07 14:30] VITALS: BP 108/70; PULSE 59
[2025-07-07 15:21] VITALS: BP 118/63
[2025-07-07] MEDS: LOVENOX 40 MG SC (17:42)
[2025-07-07] MEDS: CEFTIN 500 MG PO (20:00)
[2025-07-07] MEDS: RISPERDAL 0.25 MG PO (20:04)
[2025-07-07] MEDS: FLUSH (NSS) 1 FLUSH IV (20:07)
[2025-07-07] MEDS: MELATONIN 5 MG PO (21:32)
[2025-07-07 23:11] VITALS: BP 139/71
[2025-07-08 08:16] VITALS: BP 160/62
[2025-07-08] MEDS: CEFTIN 500 MG PO (08:51)
[2025-07-08] MEDS: TOPROL XL 25 MG PO (08:52)
[2025-07-08] MEDS: ZESTRIL 5 MG PO (08:52)
[2025-07-08] MEDS: TYLENOL 1000 MG PO ×2 (08:52→15:52)
[2025-07-08] MEDS: LEXAPRO 10 MG PO (08:52)
[2025-07-08] MEDS: MIRALAX PO ×2 (08:52→19:30)
[2025-07-08] MEDS: LIPITOR 10 MG PO (08:52)
[2025-07-08] MEDS: RISPERDAL 0.25 MG PO ×2 (08:56→14:45)
--- NOTE | 2025-07-08 09:22 | W.PN.HOSP.TC ---
Addendum entered and electronically signed by Megan Powers MD 07/08/25 16:20:
Addendum
Patient was able to void without retention. Discussed with pillowcase cleaner. Okay to send back to memory unit.
Total discharge time spent to see the patient, examine the patient, review data and lab result, discuss discharge plan with patient, nursing staff around 65 minutes
Original Note:
Today's Communication/Plan
-
ok to dc
Assessment / Plan
Assessment / Plan
Physical Exam
General: No Apparent Distress
HEENT: Normocephalic, dryt mucous membranes and Atraumatic
Respiratory: Clear
Cardiac: S1/S2 and Regular Rhythm; No Murmur or Rub
GI: Soft, Non Tender, Non Distended and Normal Bowel Sounds
Rectal: No bleeding
Musculoskeletal: No Clubbing, No Cyanosis and No Edema
Skin: Rash ( L ankle redness and swelling/ lump anteriorly is less.)
Neuro: awake, disoriented to self, forgetful, followed commands.
Psych: calm, apparent dementia.
A/P:
Lt ankle swelling
CT showed: Significant generalized edema of the subcutaneous tissues. Severe Achilles tendinosis, chronic avulsion injury to the medial malleolus.
d/w ortho, c/w supportive measures with ice and elevation/ walker. Per ortho: A boot could help get some weight off the area, but may potentially set her up for a fall, which we definitely want to avoid. Therefore, a boot may not be the best
option. Some steroids might help reduce the level of inflammation and swelling. Her exam this morning was essentially benign, therefore I would approach very supportively.
Since we are suspecting fall at [place], did CT head and cervical area/ no acute findings.
# Doubt lower LE cellulitis
Positive Leucocytosis but could be reactive
s/p Will do 3 days of IV Ancef, dc 07/07 then c/w oral Ceftin to finish the course.
- Not septic or toxic looking
- NEG Sono for DVT. NEG XR Fx
Appreciate ortho help
# Acute fractures of the right superior and inferior pubic rami with displacement POA causing change in gait with gait dysfunction
d/w ortho, will need WBAT with a walker
Likely related to a fall, pt has memory impairment, unable to provide history
# Acute urinary retention
Started on Flomax, now seems to do better, able to void.
Retention due to lack of activity following acute pelvic fracture
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 Pain from fracture can be also a contributory factor, will do Tylenol ATC with PRN Oxycodone.
She is [place] Resident
#Essential HTN - stable on Lisinopril, Metoprolol succinate
# HLD - control, on Atorvastatin
Updated family 07/06.
Total time spent to see the patient, examine the patient, review data lab result, discuss treatment plan with patient, her family ( son- Richard), nursing staff around 55 minutes
Anticipated Discharge: Today
Subjective/Interval History
-
Date of Service: July 08, 2025
No retention
Objective Data
-
Vital Signs:
Vital Signs
Temp Pulse Resp BP Pulse Ox
97.7 F 80 18 160/62 95
07/08/25 08:16 07/08/25 08:16 07/08/25 08:16 07/08/25 08:16 07/08/25 08:16
I&O
07/07/25 07/08/25 07/09/25
06:59 06:59 06:59
Intake Total 680 / 680 620 / 620
Output Total 900 / 900 1550 / 1550
Balance -220 / -220 -930 / -930
--- NOTE | 2025-07-08 10:59 | PTCARENOTE ---
patient very restless this am,attempting to get out of bed frequently. Respiridol given as ordered . patient presently sitting in chair watching TV and less restless. chair alarm intact and functioning. Instructed patient not to bet out of chair
unassisted , instructed satellite television installer [place] use and placed in reach. Plan of care ongoing.
[2025-07-08] MEDS: FLOMAX 0.4 MG PO (12:54)
[2025-07-08 13:32] VITALS: BP 126/80
--- NOTE | 2025-07-08 13:34 | FALL ---
Description of Fall:found patient sitting on floor next to chair. incontinent of bowel.
Injuries Noted:abrasion on right mid back
Action Taken: assited back to chair, cleansed and patient brought to nurses station in recliner chair for monitoring
vitals documented, WNL, neurological assessment completed,
Name of Provider Notified: Dr Powers
--- NOTE | 2025-07-08 15:42 | CM ---
MD indicated patient ready for discharge she no longer needed bladder scan and st cath prn .Pt voiding adequately.
Pt remains pleasantly confused.
Called [facility] pts memory care facility [phone] left message .
Spoke with son he would like her to return to [facility] with [facility]
Called 2 more additional times to [facility] Spoke with Fay she said she spoke with bank reconciliator nurse patient was accepted back.
Medical nec form completed
Son Richard aware of dc to [facility] today and he is in agreement .
IMM reviewed with him. He agrees with dc today .
PLAN Return to [facility] assisted living dc summary fax [phone] and [facility] fax [phone]
[2025-07-08 15:46] VITALS: BP 126/61
--- NOTE | 2025-07-08 16:11 | W.DCSUMMARY ---
Discharge Summary
Discharge Data
Date of Admission: 07/03/25
Date of Discharge: 07/08/25
-
Pending Results: No
Hospital Course
80 years old female was sent in from detention for gait dysfunction and left lower extremity cellulitis. She was given cephalexin on detention and felt her left ankle swelling did not improve. She was also noticed that she was unable to bear
weight on the left lower extremity. 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 X-ray
of the pelvic area showed acute fractures of the right superior and inferior pubic rami with displacement. Patient did not have history of fall on admission. Possibility of fall was discussed with family. Due to underlying dementia and impulsive
behavior, patient remained at high risk of falls. Patient was evaluated by orthopedic on due to fall risk, boot was avoided and recommended weightbearing as tolerated with a walker. Patient was put on Tylenol for pain control. Patient has history
of advanced dementia and behavioral disturbances. Scan of the head and neck did not show acute findings. She was given low-dose Risperdal for agitation. Patient did not need restraints and she was able to follow commands at times. Goal of care
discussed with the family and they were leaning toward hospice care if no improvement. Patient was given empiric antibiotic for left ankle area redness but felt her underlying swelling and redness likely secondary to trauma. Blood culture did not
show any growth. Patient had an episode of acute urinary retention was started on straight cath protocol and given the Flomax. Patient was able to void without retention. She remained hemodynamically stable was discharged back to memory care unit
to follow-up with orthopedic in outpatient setting.
Discharge Plan
-
Patient Disposition: Long-Term/SNF
Discharge Diagnosis/Procedures: -Left ankle swelling: Severe Achilles tendinosis, chronic avulsion injury to the medial malleolus.
-Acute fractures of the right superior and inferior pubic rami with displacement POA causing change in gait with gait dysfunction
Diet: As tolerated
Activity: With assistance, As tolerated and With Walker
Referrals:
Olman Arias PA-C [Specified Professional Personl, Surgical] - in one month
Clayton Paulino MD [Family Provider, Internal Medicine]
Prescriptions:
New
acetaminophen [Tylenol Extra Strength] 500 mg Tablet
1,000 mg PO TID Qty: 10 0RF
tamsulosin 0.4 mg Capsule
0.4 mg PO DAILY Qty: 30 0RF
cefuroxime axetil 500 mg Tablet
500 mg PO BID Qty: 6 0RF
risperidone 0.5 mg Tablet
0.25 mg PO Q8H Qty: 3 0RF
melatonin 5 mg Tablet
5 mg PO HS Qty: 30 0RF
Continued
polyethylene glycol 3350 17 GRAMS powder in packet
17 grams PO BID
atorvastatin 10 MG tablet
10 mg PO DAILY
lisinopril 5 MG tablet
5 mg PO DAILY
metoprolol succinate 25 MG tablet extended release 24 hr
25 mg PO DAILY
Escitalopram Oxalate
10 mg PO DAILY
Discontinued
ondansetron 4 mg tablet,disintegrating
4 mg PO Q6H PRN (Reason: nausea and vomiting) Qty: 20 0RF
Discharge Orders:
Discharge Patient (As Directed); Ordered 07/08/25
Ordered By: Megan Powers
Discharge Date and Time
Print Language: NAURUAN
[2025-07-08] MEDS: LOVENOX SC (17:13)
[2025-07-08 19:23] VITALS: BP 116/55
== END 2025-07-08 19:52 | disposition home health service (06) | DRG 558 ==
LOC: 4 EAST ACU 07:31
PROVIDERS: Physician Assistant; ADMITTING PHYSICIAN Internal Medicine; ATTENDING PHYSICIAN Internal Medicine; CONSULT PHYSICIAN Specialist; EMERGENCY PHYSICIAN Emergency Medicine; FAMILY PHYSICIAN Internal Medicine
DX: M67.874 Other specified disorders of tendon, left ankle and foot (principal); S32.591A Other specified fracture of right pubis, initial encounter for closed fracture; F02.84 Dementia in other diseases classified elsewhere, unspecified severity, with anxiety; I10 Essential (primary) hypertension; E78.00 Pure hypercholesterolemia, unspecified; R26.9 Unspecified abnormalities of gait and mobility; G30.1 Alzheimer's disease with late onset; M16.0 Bilateral primary osteoarthritis of hip; S82.52XA Displaced fracture of medial malleolus of left tibia, initial encounter for closed fracture; K58.8 Other irritable bowel syndrome; R33.9 Retention of urine, unspecified; X58.XXXA Exposure to other specified factors, initial encounter; Y93.9 Activity, unspecified; Y92.9 Unspecified place or not applicable; Z66 Do not resuscitate; Z85.828 Personal history of other malignant neoplasm of skin; Z88.8 Allergy status to other drugs, medicaments and biological substances; Z91.81 History of falling
CPT/HCPCS: 70450; 72125; 72170; 73610; 73630; 73700; 80053; 83735; 85025; 85027; 87040; 93971; 96374; 97163; 97167; 97530; 97535; 99285

== ENCOUNTER 2025-09-03 10:57 | Emergency (ER) | payer MEDICARE, OTHER, SELFPAY ==
[2025-09-03 11:03] VITALS: BP 118/71
[2025-09-03 11:07] VITALS: BMI 20.2
[2025-09-03 11:22] LABS: Hematocrit 34.0 % (37.0-47.0); Hemoglobin 10.9 g/dL (12.0-16.0); Mean Corp Hgb Conc. 32.1 g/dL (33.0-37.0); Mean Corpuscular Volume 92.1 fL (81.0-99.0); Nucleated Red Blood Cells % 0 %; Platelet Count 348 10^3/uL (130-400); Red Cell Dist. Width 14.6 % (11.5-14.5)
[2025-09-03 11:42] LABS: ALT (SGPT) 17 U/L (0-35); AST (SGOT) 30 U/L (14-36); Albumin 3.9 g/dl (3.5-5.0); Alkaline Phosphatase 147 U/L (38-126); Blood Urea Nitrogen 18 mg/dl (7-17); Calcium 8.9 mg/dl (8.4-10.2); Carbon Dioxide 33 mmol/L (22-30); Chloride 103 mmol/L (98-107); Estimated Creatinine Clearance 44 ml/min; Glucose 131 mg/dl (70-99); Potassium 4.4 mmol/L (3.5-5.1); Sodium 137 mmol/L (135-145); Total Protein 7.0 g/dl (6.3-8.2); eGFR > 60.00
[2025-09-03 12:09] VITALS: BP 126/84
--- NOTE | 2025-09-03 12:54 | ED.GENMED ---
History of Present Illness
General
Chief Complaint: Fall
Source: patient
Exam Limitations: none
Time Seen by Provider: 09/03/25 12:33
Nursing documentation reviewed up to this point in time: agreed with
History of Present Illness
History of Present Illness:
see MDM
Past History
Past History
ED Past Medical History: HTN, Hypercholesterolemia, Psychiatric (anxiety. Multiple similar episodes of syncope, first time was 12/12, second time was 01/04, both with nausea preceding, did not have medical evaluation for these 2. Had a third episode on
02/11 and was evaluated here. 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
Social History
Personal:
Living: with family
Employment: Retired
Review of Systems
Review of Systems
Allergies reviewed?: Yes
Unable to obtain full review of systems at this time due to: dementia
All Other Systems: Not applicable
Phy Exam
Physical Exam
Physical Exam:
GENERAL: Alert , picking at the wires, clearly disoriented, consistent with her dementia
HEAD: NCAT
Face: Obvious right zygomatic hematoma, can open eye fully, mildly tender, superficial laceration within the hematoma
NECK: no midline tenderness, active ROM intact, no paraspinal muscle tenderness;
EYE: pupils equal and reactive, EOMs intact.
ENT: o/p clr, mmm. no hemotympanum
CARDIAC: Regular rate and rhythm, no edema
LUNGS: Clear breath sounds bilaterally, no acute respiratory distress, no wheezes/rales/rhonchi
ABDOMEN: Soft, without focal tenderness, no r/g, no cvat
NEUROLOGICAL: Alert and oriented to person only, no focal neuro deficits, CN intact, 5/5 strength, sensation intact
SKIN: Warm and dry,
MUSCULOSKELETAL: Right shoulder ecchymosis, no soft tissue swelling, full abduction and rotation present, left shoulder seems swollen or may be subluxed, difficult active range of motion, I am able to AB duct her left shoulder about 45 degrees, she
has significant pain
No pelvis tenderness, can move both hips
PSYCH: Dementia
Course
Orders/Labs/Results
Orders:
Orders
09/03/25 11:06
Electrocardiogram (*1) Urgent
Reason for Study: Syncope
09/03/25 11:07
EKG- Treatment ONCE
09/03/25 11:[address] [CT Head W/o Iv Contrast] Urgent
Comment:
Reason For Exam: uwitnessed fall
CMP [Comprehensive Metabolic Panel] Urgent
Complete Blood Count/With Diff Urgent
09/03/25 12:58
CR Shoulder, Trauma - Left Urgent
Comment:
Reason For Exam: fall
CR Shoulder, Trauma - Right Urgent
Comment:
Reason For Exam: fall
09/03/25 13:07
Lorazepam [Ativan] 0.5 mg IV NOW STA
09/03/25 14:16
Risperidone [Risperdal] 0.5 mg PO NOW STA
Abnormal Lab Results
09/03/25
11:14
RBC 3.69 L 10^6/uL
(4.20-5.40)
Hgb 10.9 L g/dL
(12.0-16.0)
Hct 34.0 L %
(37.0-47.0)
MCHC 32.1 L g/dL
(33.0-37.0)
RDW 14.6 H %
(11.5-14.5)
Absolute Lymphs (auto) 1.1 L 10^3/uL
(1.2-3.4)
Absolute Monos (auto) 0.9 H 10^3/uL
(0.1-0.6)
Lymphocytes % 13.0 L %
(20.5-51.1)
Monocytes % 10.9 H %
(1.7-9.3)
Carbon Dioxide 33 H mmol/L
(22-30)
BUN 18 H mg/dl
(7-17)
Glucose 131 H mg/dl
(70-99)
Alkaline Phosphatase 147 H U/L
(38-126)
09/03/25 11:14
09/03/25 11:14
Vital Signs
Initial and Last Documented VS:
Initial Vital Signs
Pulse Resp Pulse Ox
80 18 96
09/03/25 11:00 09/03/25 11:00 09/03/25 11:00
Last Documented Vital Signs
Pulse Resp BP Pulse Ox
83 19 126/84 97
09/03/25 13:30 09/03/25 13:30 09/03/25 12:09 09/03/25 12:57
MDM/Problems Addressed
Differential Diagnosis Includes:
see MDM
MDM/Problems Addressed:
Note:
CHIEF COMPLAINT(S)
Fall with facial and shoulder injury.
HISTORY OF PRESENT ILLNESS
pt is a 80 y/o F
from memory care via ems
pt fell today
unwitnessed but was not on ground long, as she was out of her room moving about and then found on the ground by staff
she c/o L shoulder pain and facial pain with swelling
pt is badseline severe dementia
has h/o pacer
no LOC suspected
no thinners
at her baseline
ADDITIONAL HISTORY OBTAINED FROM SOURCES OTHER THAN THE PATIENT
According to paramedics, the patient was found on the ground and was unable to explain how she ended up there. The healthcare staff was informed about her being in a memory care facility, indicating her pre-existing dementia.
REVIEW OF SYSTEMS
- Neurological: Patient exhibits confusion consistent with known dementia.
- Musculoskeletal: Pain in the shoulder and elbow with noted shoulder bruise; limited range of motion observed.
- Integumentary: Bruise on the shoulder and a facial abrasion from the fall.
PHYSICAL EXAM
see above
PROBLEM LIST
Acute Problems:
- Fall resulting in facial and shoulder injuries
- Abrasion on face
- Shoulder pain and possible shoulder injury
PLAN
- Perform a head CT scan to evaluate for cranial injury due to the reported fall.
- Clinical monitoring and pain management for the shoulder injury.
- Evaluation of shoulder injury history to determine if it is a re-injury.
DIFFERENTIAL DIAGNOSIS
The Differential Diagnosis includes, in no particular order and is not limited to:
1. Shoulder fracture
2. Soft tissue injury
3. Traumatic brain injury or concussion
4. Contusion
5. Subdural hematoma
6. Elder abuse or neglect
7. Syncope leading to fall
8. Impaired balance due to dementia
9. Vertebral fracture
10. Wrist or elbow fracture
80-year-old female from a memory care unit with an unwitnessed fall but was not on the ground for a while with facial trauma right and left shoulder pain. She can hold a conversation at her baseline but is severely demented. This is consistent
with what I am seeing here. She has right zygomatic facial swelling but can fully open her eye, she also has a bruise on her right shoulder and pain and what looks like chronic arthritic changes of her left shoulder
Patient CT of her head shows a contusion to her right inferior orbital region without any fracture. She has no brain bleed. Patient's x-rays independently reviewed by me, show chronic arthritic changes but no acute fractures. She was afebrile
with an axillary temp 97.8. Patient continued to try to get out of bed despite doses of Ativan and her Risperdal
Patient is pacer was interrogated and she had no events
She is cleared to be sent back to her halfway
*Pulse Oximetry
SaO2: 97
Oxygen Mode of Delivery: Room air
Patient hypoxic: no (97)
*Critical Care Note
Total Time (30-74mins, 75-104mins- exclusive of procedures): Not Applicable
ED Attending Note
-
Portions of this chart may have been created with voice recognition software.� Occasional wrong word or��sound alike� substitutions may have occurred due to the inherent limitations of voice recognition software.
Discharge Plan
Departure
Patient Disposition: Alf/SNF
Date of Disposition: 09/03/25
Time of Disposition: 13:44
Patient with high blood pressure during this ER visit?: No
Condition: Fair
Covid-19: Not Applicable
Discharge Problem:
Fall, Contusion of face, Traumatic ecchymosis of right shoulder
Instructions: Contusion (DC), Preventing falls in adults
Prescriptions:
No Action
atorvastatin 10 MG tablet
10 mg PO DAILY
lisinopril 5 MG tablet
5 mg PO DAILY
metoprolol succinate 25 MG tablet extended release 24 hr
25 mg PO DAILY
escitalopram oxalate [Lexapro] 10 mg Tablet
10 mg PO DAILY Qty: 0
acetaminophen [Tylenol Extra Strength] 500 mg Tablet
1,000 mg PO TID Qty: 10 0RF
tamsulosin 0.4 mg Capsule
0.4 mg PO DAILY Qty: 30 0RF
melatonin 5 mg Tablet
5 mg PO HS Qty: 30 0RF
tramadol 50 mg Tablet
50 mg PO Q6HPRN PRN (Reason: moderate pain)
acetaminophen [Tylenol Extra Strength] 500 mg Tablet
1,000 mg PO Q8HPRN PRN (Reason: mild pain)
risperidone 0.5 mg tablet
0.5 mg PO BID
Referrals:
Clayton Paulino MD [Family Provider, Internal Medicine]
Activity Restrictions/Additional Instructions:
Kirsten had a negative head CT and no facial fracture but she does have a hematoma. If she will let you you can ice off-and-on. Tylenol for pain. The bruising will resolve. She also had a bruise on her right shoulder but no evidence of fracture
on either shoulder on x-ray. Her blood work was reassuring. Return as needed
We did give her a dose of Risperdal p.o. 0.5 mg orally after Ativan 0.5 mg IV for some agitation and restlessness
Interventions
Interventions:
*Risk Screen - Suicide Last Done: 09/03/25 11:07
*General Assessment Last Done: 09/03/25 11:04
*Neglect/Abuse Screening Last Done: 09/03/25 11:04
*ED- Fall Risk Assessment Last Done: 09/03/25 11:07
*ED COVID-19 Vaccine History Last Done: 09/03/25 11:07
*ED Influenza Vaccine History Last Done: 09/03/25 11:07
*Nursing Disposition Last Done: 09/03/25 16:03
ED-Musculoskeletal Assessment Last Done: 09/03/25 11:07
ED- Neurological Assessment Last Done: 09/03/25 11:07
ED-Skin Assessment Last Done: 09/03/25 11:07
Discharge Date and Time
Discharge Date/Time: 09/03/25 16:04
Print Language: OCCITAN
[2025-09-03] MEDS: ATIVAN 0.5 MG IV (13:09)
[2025-09-03] MEDS: RISPERDAL 0.5 MG PO (14:23)
== END 2025-09-03 16:04 ==
LOC: EMR 10:57
PROVIDERS: EMERGENCY PHYSICIAN Emergency Medicine; FAMILY PHYSICIAN Internal Medicine
DX: S00.83XA Contusion of other part of head, initial encounter (principal); S40.011A Contusion of right shoulder, initial encounter; W19.XXXA Unspecified fall, initial encounter; I10 Essential (primary) hypertension; E78.00 Pure hypercholesterolemia, unspecified; F03.C4 Unspecified dementia, severe, with anxiety
CPT/HCPCS: 96374; 99284; 70450; 73030; 80053; 85025; 93005